=== PATIENT | male | born 1975 | race Caucasian/White ===

== ENCOUNTER 2021-09-18 12:46 | Emergency (ER) | payer OTHER ==
[~2021-09-18] VITALS: Ht 167.6 cm; Wt 90.0 kg
[~2021-09-18 12:46] MED LIST: BACTRIM DS1 TAB PO; ERYTHROMYCIN O3.5 GM OP; NAPROSYN500 MG PO
[2021-09-18 14:02] LABS: HEMATOCRIT 45.3 % (39.0-50.0); HEMOGLOBIN 14.5 g/dl (14.0-18.0); IMMATURE GRANULOCYTES 0.2 % (0.0-5.0); MEAN CELL VOLUME 86.6 fL CALC (80.0-100.0); MEAN CORPUSCULAR HGB 27.7 pG CALC (26.0-32.0); NEUT# 9.88 thou/uL (1.82-7.42); RED BLOOD COUNT 5.23 mill/uL (4.70-6.10); RED CELL DISTRI WIDTH 13.4 % (11.5-15.5)
[2021-09-18 14:13] LABS: ALBUMIN 4.3 g/dL (3.2-5.0); ALKALINE PHOSPHATASE 81 u/l (38-126); ANION GAP 14 (6-22 (CALC)); BILIRUBIN, TOTAL 0.7 mg/dL (0.0-1.4); BUN 8 mg/dL (9-20); BUN/CREATININE RATIO 9 (12-20 (CALC)); CARBON DIOXIDE 25 mmol/l (22-30); CHLORIDE 103 mmol/l (95-108); CREATININE 0.9 mg/dL (0.7-1.3); GFR > 60 ML/MIN (>=60 (CALC)); GFR FOR AFR.AMER. > 60 ML/MIN (>=60 (CALC)); SGOT/AST 25 u/l (17-59); SODIUM 138 mmol/l (137-146)
[2021-09-18] MEDS ORDERED: CIPROFLOXACN500 MG PO (15:24)
[2021-09-18] MEDS ORDERED: METRONIDAZOL500 MG PO (15:24)
[2021-09-18 16:28] LABS: URINE BILIRUBIN - DIPSTICK NEGATIVE (NEGATIVE); URINE BLOOD DIPSTICK NEGATIVE (NEGATIVE); URINE COLOR YELLOW; URINE GLUCOSE - DIPSTICK NEGATIVE (NEGATIVE); URINE KETONE NEGATIVE (NEGATIVE); URINE LEUK ESTERASE NEGATIVE (NEGATIVE); URINE PROTEIN - DIPSTICK NEGATIVE (NEG-TRACE); URINE UROBILINOGEN - DIPSTICK 0.2 E.U./dL (0.2)
[2021-09-18 16:34] LABS: URINE NITRITE - DIPSTICK NEGATIVE (Negative)
[2021-09-18 16:55] VITALS: BP 142/81
== END 2021-09-18 16:55 | disposition home or self-care (01) | DRG 392 ==
LOC: ED 12:46
PROVIDERS: Physician Assistant Surgical
DX: K52.9 Noninfective gastroenteritis and colitis, unspecified (principal)
CPT/HCPCS: Q9967

== ENCOUNTER 2021-12-23 07:38 | Day surgery (SDC) | payer OTHER ==
[~2021-12-23] VITALS: Ht 175.3 cm; Wt 84.8 kg
[~2021-12-23 07:38] MED LIST changes: +CIPROFLOXACN500 MG PO; +METRONIDAZOL500 MG PO; +METRONIDAZOLE500 MG PO
[2021-12-23 11:23] VITALS: BP 120/85
[2021-12-25] MEDS ORDERED: HYDROCORTI100 MG/60 PR (09:49)
--- NOTE | 2021-12-25 11:35 | NUR ---
PATIENT CALLED OFFICE STATED HE WAS C/O PAIN FOLLOWING PROCEDURE. PER PHYSICIAN, FINDINGS OF COLITIS. RX CALLED INTO [facility] FOR HYDROCORTISONE RECTAL SUSPENSION, PER MD ORDER. PT CAME INTO OFFICE, STATES MEDICATION "EXPENSIVE" AND WOULD LIKE ANTIBIOTIC CALLED IN, WAS GIVEN DURING A PREVIOUS EMERGENCY VISIT. PER PATIENT, "THAT SEEMED TO HELP." PER PHYSICIAN, ADVISED PATIENT ENEMAS ARE THE BEST FOR THIS TYPE OF TREATMENT. RX MEDROL DOSE PACK, TAKE DIRECTED, #1 AND AUGMENTIN 875 MG SG. 1 BY MOUTH TWICE PER DAY X 7 DAYS ORDERED. MEDICATION CALLED INTO [facility] AT [facility] PER MD ORDER. PATIENT NOTIFIED OF NEW ORDERS AND GIVEN INSTRUCTIONS PER PHYSICIAN. ALSO AWARE OF ENEMA RECOMMENDATION. ALSO, GOOD RX DISCOUNT CARD INFORMATION PROVIDED. 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 NO FURTHER CONCERNS VOICED AT TIME OF CALL.
== END 2021-12-23 11:31 | disposition home or self-care (01) | DRG 387 ==
LOC: ENDO 07:38
PROVIDERS: ATTEND Surgery
PROC: 0DBC8ZX Excision of Ileocecal Valve, Via Natural or Artificial Opening Endoscopic, Diagnostic (ICD-10-PCS; principal; 2021-12-23)
PROC: 0DBP8ZX Excision of Rectum, Via Natural or Artificial Opening Endoscopic, Diagnostic (ICD-10-PCS; 2021-12-23)
PROC: 0DBB8ZX Excision of Ileum, Via Natural or Artificial Opening Endoscopic, Diagnostic (ICD-10-PCS; 2021-12-23)
DX: K50.111 Crohn's disease of large intestine with rectal bleeding (principal); F17.210 Nicotine dependence, cigarettes, uncomplicated